=== PATIENT | female | born 1955 | race Caucasian/White ===

== ENCOUNTER → 2021-10-27 | Outpatient (CLI) | payer OTHER ==
[~2021-10-27] MED LIST: ALPR1; ALPR1 PO; ATEN50; ATEN50 PO; Atenolol25 MG PO; BUPR100; DIAZ2 PO; ESTR2; ESTR2 PO; FOLI1 PO; FURO20; FURO20 PO; HYDR1TAB94 PO; LEUC5 PO; LEVSOD100; LEVSOD100 PO; LEVSOD137 PO; Leflunomide20 MG PO; MECL25 PO; METF500 PO; PRAM.5; Triamterene W/1 EACH PO
== END | disposition home or self-care (01) ==
LOC: LAB 12:18 → LAB SHORT 12:18
DX: C44.622 Squamous cell carcinoma of skin of right upper limb, including shoulder (principal)
CPT/HCPCS: 88305

== ENCOUNTER → 2022-05-02 | Outpatient (CLI) | payer MEDICARE, OTHER | END | disposition home or self-care (01) | LOC: LAB SHORT 12:09 → PLD 12:09 | DX: D22.5 Melanocytic nevi of trunk (principal) | CPT/HCPCS: 88305 ==

== ENCOUNTER → 2022-06-19 | Outpatient (CLI) | payer MEDICARE, OTHER | END | disposition home or self-care (01) | LOC: PLD 07:19 → LAB 07:19 → LAB SHORT 07:19 | DX: D48.5 Neoplasm of uncertain behavior of skin (principal) | CPT/HCPCS: 88305 ==